=== PATIENT | female | born 1970 ===

== ENCOUNTER 2022-03-22 09:47 | Inpatient (IN) | payer MEDICAID ==
[~2022-03-22] VITALS: Ht 152.4 cm; Wt 64.6 kg
[2022-03-22 11:29] LABS: COVID AG,FIA SOURCE NASOPHARYNGEAL
[2022-03-22] MEDS ORDERED: HALOPERIDOL LACTATE 5 MG/ML VIAL IM ONE (11:30)
[2022-03-22] MEDS ORDERED: LORazepam 2 MG/ML VIAL IM ONE (11:30)
[2022-03-22] MEDS ORDERED: DiphenhydrAMINE HCL 50 MG/ML VIAL IM ONE (11:30)
[2022-03-22 12:56] LABS: BASOPHILS % (AUTO) 0.5 % (0.0-2.0); EOSINOPHILS % (AUTO) 0.3 % (1.0-6.0); HEMOGLOBIN 12.5 g/dL (12.0-16.0); LYMPHOCYTES # (AUTO) 1.7 K/uL (1.0-4.8); LYMPHOCYTES % (AUTO) 33.5 % (22.0-44.0); MEAN CORPUSCULAR HEMOGLOBIN 33.3 pg (26.0-34.0); MEAN CORPUSCULAR HGB CONC 33.6 G/dL (31.0-37.0); MEAN CORPUSCULAR VOLUME 99 fL (80-100); MONOCYTES # (AUTO) 0.5 K/uL (0.1-1.0); MONOCYTES % (AUTO) 9.6 % (2.0-9.0); NEUTROPHILS # (AUTO) 2.8 K/uL (1.8-7.7); NEUTROPHILS % (AUTO) 56.1 % (40.0-70.0); PLATELET COUNT (AUTO) 207 K/uL (150-450); RED BLOOD CELL COUNT(AUTO) 3.74 MIL/uL (4.00-5.20); RED CELL DISTRIBUTION WIDTH 12.9 % (11.5-14.5)
[2022-03-22 13:21] LABS: ANION GAP 8 mmol/L (8-16); CARBON DIOXIDE 29 mmol/L (22-29); CHLORIDE 105 mmol/L (98-107); GLOMERULAR FILTR. RATE CALC > 60 mL/min (>60); GLUCOSE,RANDOM 80 mg/dL (70-110); POTASSIUM 3.6 mmol/L (3.5-5.1); SODIUM SERUM 142 mmol/L (136-145); UREA NITROGEN, BLOOD 12 mg/dL (7-18)
[2022-03-22] MEDS ORDERED: HALOPERIDOL 5 MG TABLET PO PRN (13:30)
[2022-03-22] MEDS ORDERED: ZOLPIDEM TARTRATE 10 MG TABLET PO PRN (13:30)
[2022-03-22] MEDS ORDERED: LORazepam 2 MG TABLET PO PRN (13:30)
[2022-03-22 13:35] LABS: ALANINE AMINOTRANSFERASE 58 U/L (12-78); ALBUMIN 3.2 g/dL (3.4-5.0); ALKALINE PHOSPHATASE 69 U/L (46-116); ASPARTATE AMINOTRANSFERASE 34 U/L (15-37); BILIRUBIN,TOTAL 0.6 mg/dL (0.1-1.0); HCG,QUANTITATIVE 1 mIU/mL (0-6); THYROID STIMULATING HORMONE 1.21 uIU/mL (0.36-3.74); TOTAL PROTEIN, SERUM 6.4 g/dL (6.4-8.2)
[2022-03-22 21:42] LABS: APPEARANCE,URINE HAZY (CLEAR); BILIRUBIN,URINE NEGATIVE (NEGATIVE); GLUCOSE, URINE (UA) NEGATIVE (NEGATIVE); KETONES,URINE 80-100 mg/dL (NEGATIVE); LEUKOCYTE ESTERASE ,URINE TRACE (NEGATIVE); NITRATE,URINE NEGATIVE (NEGATIVE); OCCULT BLOOD,URINE NEGATIVE (NEGATIVE); PROTEIN,URINE TRACE mg/dL (NEGATIVE); SPECIFIC GRAVITIY, URINE 1.024 (1.003-1.030); UROBILINOGEN,URINE <=1.0 mg/dL (<=1.0)
[2022-03-22 21:49] LABS: AMPHET/METH SCREEN,URINE NEGATIVE (NEGATIVE); BARBITURATE SCREEN, URINE NEGATIVE (NEGATIVE); BENZODIAZEPINES SCREEN,URINE NEGATIVE (NEGATIVE); CANNABINOID SCREEN,URINE NEGATIVE (NEGATIVE); COCAINE SCREEN,URINE NEGATIVE (NEGATIVE); METHADONE SCREEN, URINE NEGATIVE (NEGATIVE); OPIATE SCREEN,URINE NEGATIVE (NEGATIVE); PHENCYCLIDINE SCREEN,URINE NEGATIVE (NEGATIVE)
[2022-03-22 21:53] LABS: BACTERIA,URINE None Seen /HPF (None Seen); RBC,URINE None Seen /HPF (0-2)
[2022-03-23] MEDS ORDERED: MAGNESIUM HYDROXIDE SUSPENSION 30 ML UDCUP PO PRN (08:30)
[2022-03-23] MEDS ORDERED: NICOTINE 14 MG/24 HOUR PATCH TD PRN (08:30)
[2022-03-23] MEDS ORDERED: ALBUTEROL SULFATE HFA 90 MCG/PUFF 8 GM INHALER IH PRN (08:30)
[2022-03-23] MEDS ORDERED: LOPERAMIDE HCL 2 MG CAPSULE PO PRN (08:30)
[2022-03-23] MEDS ORDERED: IBUPROFEN 400 MG TABLET PO PRN (08:30)
[2022-03-23] MEDS ORDERED: CloNIDine HCL 0.1 MG TABLET PO PRN (08:30)
[2022-03-23] MEDS ORDERED: PETROLATUM,WHITE 28 GM JELLY TP PRN (08:30)
[2022-03-23] MEDS ORDERED: MAG HYDROX/AL HYDROX/SIMETH ES 30 ML SUSPENSION UDCUP PO PRN (08:30)
[2022-03-23] MEDS ORDERED: DOCUSATE SODIUM 100 MG CAPSULE PO PRN (08:30)
[2022-03-23] MEDS ORDERED: ACETAMINOPHEN 325 MG TABLET PO PRN (08:30)
[2022-03-23] MEDS ORDERED: ONDANSETRON HCL 4 MG TABLET PO PRN (08:30)
[2022-03-23] MEDS ORDERED: GuaiFENesin/D-METHORPHAN [SUGAR-FREE] 200-20MG/10 ML SYRUP UDCUP PO PRN (08:30)
[2022-03-23 09:39] VITALS: BP 117/73
[2022-03-23 16:07] VITALS: BP 117/76
[2022-03-23] MEDS: OLANZapine 5 MG RAPDIS TABLET PO SCH (20:32)
[2022-03-24] MEDS: OLANZapine 5 MG RAPDIS TABLET PO SCH ×2 (08:33→20:03)
[2022-03-24 08:34] VITALS: BP 137/90
[2022-03-24 16:11] VITALS: BP 131/77
[2022-03-24] MEDS ORDERED: MAGNESIUM HYDROXIDE SUSPENSION 30 ML UDCUP PO PRN (18:15)
[2022-03-24] MEDS ORDERED: ONDANSETRON HCL 4 MG TABLET PO PRN (18:15)
[2022-03-24] MEDS ORDERED: CloNIDine HCL 0.1 MG TABLET PO PRN (18:15)
[2022-03-24] MEDS ORDERED: GuaiFENesin/D-METHORPHAN [SUGAR-FREE] 200-20MG/10 ML SYRUP UDCUP PO PRN (18:15)
[2022-03-24] MEDS ORDERED: PETROLATUM,WHITE 28 GM JELLY TP PRN (18:15)
[2022-03-24] MEDS ORDERED: LOPERAMIDE HCL 2 MG CAPSULE PO PRN (18:15)
[2022-03-24] MEDS ORDERED: ALBUTEROL SULFATE HFA 90 MCG/PUFF 8 GM INHALER IH PRN (18:15)
[2022-03-24] MEDS ORDERED: NICOTINE 14 MG/24 HOUR PATCH TD PRN (18:15)
[2022-03-24] MEDS ORDERED: DOCUSATE SODIUM 100 MG CAPSULE PO PRN (18:15)
[2022-03-24] MEDS ORDERED: MAG HYDROX/AL HYDROX/SIMETH ES 30 ML SUSPENSION UDCUP PO PRN (18:15)
[2022-03-25] MEDS: OLANZapine 5 MG RAPDIS TABLET PO SCH ×2 (08:10→20:23)
[2022-03-25 08:13] VITALS: BP 118/76
[2022-03-25 16:15] VITALS: BP 140/87
[2022-03-26 08:07] VITALS: BP 113/77
[2022-03-26] MEDS: OLANZapine 5 MG RAPDIS TABLET PO SCH ×2 (08:27→20:16)
[2022-03-26] MEDS: IBUPROFEN 400 MG TABLET PO PRN (14:07)
[2022-03-26 16:52] VITALS: BP 110/81
[2022-03-27 08:36] VITALS: BP 132/98
[2022-03-27] MEDS: OLANZapine 5 MG RAPDIS TABLET PO SCH ×2 (09:00→20:50)
[2022-03-27] MEDS: ACETAMINOPHEN 325 MG TABLET PO PRN ×2 (09:11→11:50)
[2022-03-27 17:24] VITALS: BP 139/88
[2022-03-28 08:06] VITALS: BP 127/92
[2022-03-28] MEDS: OLANZapine 5 MG RAPDIS TABLET PO SCH ×2 (08:24→20:51)
[2022-03-28] MEDS: IBUPROFEN 400 MG TABLET PO PRN (12:38)
[2022-03-28 16:23] VITALS: BP 126/88
[2022-03-29 06:31] LABS: COVID AG,FIA SOURCE NASAL SWAB
[2022-03-29] MEDS: ACETAMINOPHEN 325 MG TABLET PO PRN ×2 (08:15→14:06)
[2022-03-29 08:21] VITALS: BP 135/90
[2022-03-29] MEDS: OLANZapine 5 MG RAPDIS TABLET PO SCH ×2 (09:00→20:21)
[2022-03-29 16:32] VITALS: BP 128/85
[2022-03-30] MEDS: ACETAMINOPHEN 325 MG TABLET PO PRN ×2 (06:25→14:25)
[2022-03-30 06:39] VITALS: BP 132/82
[2022-03-30 08:07] VITALS: BP 130/100
[2022-03-30] MEDS: OLANZapine 5 MG RAPDIS TABLET PO SCH ×3 (09:00→20:51)
[2022-03-30 16:54] VITALS: BP 128/94
[2022-03-30 17:04] VITALS: BP 128/94
[2022-03-31] MEDS: OLANZapine 5 MG RAPDIS TABLET PO SCH ×2 (08:28→20:23)
[2022-03-31 08:34] VITALS: BP 120/87
[2022-03-31 16:16] VITALS: BP 145/99
[2022-04-01 08:30] VITALS: BP 119/74
[2022-04-01] MEDS: OLANZapine 5 MG RAPDIS TABLET PO SCH ×2 (09:52→20:03)
[2022-04-01 16:48] VITALS: BP 108/70
[2022-04-01] MEDS ORDERED: HALOPERIDOL LACTATE 5 MG/ML VIAL IM PRN (18:15)
[2022-04-02 08:08] VITALS: BP 131/88
[2022-04-02] MEDS: OLANZapine 5 MG RAPDIS TABLET PO SCH ×2 (09:21→20:10)
[2022-04-02] MEDS: IBUPROFEN 400 MG TABLET PO PRN (09:21)
[2022-04-02] MEDS ORDERED: LOPERAMIDE HCL 2 MG CAPSULE PO PRN (12:30)
[2022-04-02] MEDS: ACETAMINOPHEN 325 MG TABLET PO PRN (16:15)
[2022-04-02 16:16] VITALS: BP 137/87
[2022-04-03 08:08] VITALS: BP 144/89
[2022-04-03] MEDS: OLANZapine 5 MG RAPDIS TABLET PO SCH ×2 (09:15→20:01)
[2022-04-03 16:23] VITALS: BP 120/80
[2022-04-03] MEDS: ACETAMINOPHEN 325 MG TABLET PO PRN (20:01)
[2022-04-04 08:14] VITALS: BP 127/88
[2022-04-04] MEDS: OLANZapine 5 MG RAPDIS TABLET PO SCH ×2 (09:18→20:28)
[2022-04-04] MEDS: IBUPROFEN 400 MG TABLET PO PRN (16:14)
[2022-04-04 16:16] VITALS: BP 127/84
[2022-04-04] MEDS: ACETAMINOPHEN 325 MG TABLET PO PRN (19:12)
[2022-04-05] MEDS: OLANZapine 5 MG RAPDIS TABLET PO SCH ×2 (08:21→20:05)
[2022-04-05 08:39] VITALS: BP 135/87
[2022-04-05] MEDS ORDERED: DiphenhydrAMINE HCL 50 MG/ML VIAL ONE (09:51)
[2022-04-05] MEDS ORDERED: HALOPERIDOL LACTATE 5 MG/ML VIAL ONE (09:51)
[2022-04-05] MEDS ORDERED: LORazepam 2 MG/ML VIAL ONE (09:51)
[2022-04-05] MEDS ORDERED: HALOPERIDOL LACTATE 5 MG/ML VIAL IM ONE (10:00)
[2022-04-05] MEDS ORDERED: LORazepam 2 MG/ML VIAL IM ONE (10:00)
[2022-04-05] MEDS ORDERED: DiphenhydrAMINE HCL 50 MG/ML VIAL IM ONE (10:00)
[2022-04-05 17:55] VITALS: BP 132/85
[2022-04-05] MEDS: ACETAMINOPHEN 325 MG TABLET PO PRN (20:05)
[2022-04-06 04:27] LABS: COVID AG,FIA SOURCE NASAL SWAB
[2022-04-06 05:11] VITALS: BP 106/71
[2022-04-06] MEDS: OLANZapine 5 MG RAPDIS TABLET PO SCH ×2 (09:11→20:17)
[2022-04-06 09:25] VITALS: BP 109/71
[2022-04-06 16:37] VITALS: BP 141/83
[2022-04-06] MEDS: ACETAMINOPHEN 325 MG TABLET PO PRN (20:17)
[2022-04-07 08:58] VITALS: BP 131/85
[2022-04-07] MEDS: OLANZapine 5 MG RAPDIS TABLET PO SCH ×2 (09:00→20:02)
[2022-04-07 16:20] VITALS: BP 144/84
[2022-04-07] MEDS: ACETAMINOPHEN 325 MG TABLET PO PRN (20:02)
[2022-04-08 08:42] VITALS: BP 114/66
[2022-04-08] MEDS: OLANZapine 5 MG RAPDIS TABLET PO SCH ×2 (09:02→20:02)
[2022-04-08 16:41] VITALS: BP 113/74
[2022-04-09 08:08] VITALS: BP 120/79
[2022-04-09] MEDS: OLANZapine 5 MG RAPDIS TABLET PO SCH (09:00)
[2022-04-09] MEDS ORDERED: OLAN5TAB94 PO (17:21)
== END 2022-04-09 18:00 | disposition home or self-care (01) | DRG 885 ==
LOC: EMS 09:50 → 3EC 03-23 01:36
PROVIDERS: ADMIT Psychiatry & Neurology Psychiatry; ATTEND Psychiatry & Neurology Psychiatry
DX: F20.0 Paranoid schizophrenia (principal); F31.9 Bipolar disorder, unspecified; G47.00 Insomnia, unspecified; F10.10 Alcohol abuse, uncomplicated; Z20.822 Contact with and (suspected) exposure to COVID-19; Y90.9 Presence of alcohol in blood, level not specified; F19.10 Other psychoactive substance abuse, uncomplicated; R10.13 Epigastric pain; Z59.00 Homelessness unspecified; Z71.51 Drug abuse counseling and surveillance of drug abuser; Z91.14 Patient's other noncompliance with medication regimen
CPT/HCPCS: 80053; 81001; 84443; 84702; 85025; 99291; G0480; J1200; J1630; J2060